=== PATIENT | female | born 1960 | race American Indian/Alaskan Native ===

== ENCOUNTER 2016-08-22 17:33 | Emergency (ER) | payer MEDICARE ==
[2016-08-22] MEDS ORDERED: NACL 0.9% 1000 ML 1,000 ML IV ONE ×2 (18:03→20:48)
[2016-08-22 19:21] LABS: Basophils % (Auto) 0.5 % (0.0-1.8); Eosinophils % (Auto) 0.1 % (0.0-4.3); Hematocrit 41.7 % (30.3-42.9); Hemoglobin 13.8 gm/dl (10.1-14.3); Mean Corpuscular HGB Conc 33 % (30-34); Mean Corpuscular Hemoglobin 26 pg (28-32); Mean Corpuscular Volume 79 fl (79-97); Platelet Count 221 K/mm3 (140-440); Red Blood Count 5.26 M/mm3 (3.65-5.03); Red Cell Distribution Width 15.2 % (13.2-15.2); White Blood Count 3.8 K/mm3 (4.5-11.0)
[2016-08-22 19:25] LABS: Alanine Aminotransferase 20 units/L (7-56); Albumin/Globulin Ratio 0.9 %; Alkaline Phosphatase 72 units/L (35-129); Anion Gap 19 mmol/L; Bilirubin,Total 0.5 mg/dL (0.1-1.2); Blood Urea Nitrogen 12 mg/dL (7-17); Calcium 9.3 mg/dL (8.4-10.2); Carbon Dioxide 26 mmol/L (22-30); Chloride 90.8 mmol/L (98-107); Glucose 93 mg/dL (65-100); Lipase 34 units/L (13-60); Sodium 133 mmol/L (137-145); Total Protein 8.4 g/dL (6.3-8.2)
[2016-08-22 19:30] LABS: Potassium 2.9 mmol/L (3.6-5.0)
[2016-08-22 19:58] LABS: INR 0.96 (0.87-1.13)
[2016-08-22 19:59] LABS: Partial Thromboplastin Time 29.3 Sec. (24.2-36.6)
[2016-08-22] MEDS ORDERED: PEPCID IV ONE (20:46)
[2016-08-22] MEDS ORDERED: MORPHINE IV ONE (20:46)
[2016-08-22] MEDS ORDERED: ZOFRAN IV ONE (20:46)
[2016-08-22] MEDS ORDERED: K-DUR PO ONE (20:48)
[2016-08-22] MEDS ORDERED: NACL ONE (20:50)
[2016-08-22 22:56] VITALS: BP 104/64
--- NOTE | 2016-08-22 22:57 | Cat Scan Report ---
FINAL REPORT EXAM: CT ABDOMEN PELVIS W CON HISTORY: epigastic, ruq pain vomiting blood, TECHNIQUE: CT images are acquired through the Abdomen and Pelvis following intravenous administration of contrast. Transaxial, coronal and sagittal reformations are provided. PRIORS: None FINDINGS: Partially visualized intrathoracic contents are unremarkable. Cholecystectomy. The liver, pancreas, spleen, and adrenal glands are unremarkable. Kidneys show no worrisome lesions, hydronephrosis, or calculi. Urinary bladder is without intraluminal stone. Small and large bowel are normal in caliber. Fluid throughout much of the colon. No pericolonic stranding. Scattered diverticula. Appendix is normal. No free air, free fluid, or lymphadenopathy identified. Aorta is normal in course and caliber. Opacified mesenteric arteries. Patient status post hysterectomy. Multiple pelvic phleboliths. Superficial soft tissues are unremarkable. No acute or aggressive appearing skeletal findings. IMPRESSION: Fluid throughout much of the colon is likely infectious. Correlation for diarrheal disease is requested. No other potentially acute intra-abdominal process identified. Consider gastroenterology consultation given history.
--- NOTE | 2016-08-22 23:18 | Emergency Department Report ---
ED Abdominal Pain HPI - General Chief Complaint: GI Bleed Stated Complaint: VOMITTING BLOOD/SOB/NO BOWEL MVMT/PASSED OUT Time Seen by Provider: 08/22/16 20:37 Source: patient Mode of arrival: Ambulatory Limitations: No Limitations - History of Present Illness Initial Comments: 56-year-old female with a past medical history of GERD, high cholesterol, hypertension, previous cholecystectomy and hysterectomy presents to the hospital complaints of abdominal pain, nausea, and vomiting. Patient complains of intermittent sharp epigastric pain rated 8/10 in intensity 1 week. Resume palpation. No leaving factors. Patient had repeated episodes of vomiting which then became blood-streaked. Patient has not had a bowel movement in 4 days and took [place] oil laxity today. No reports of fever, dysuria, or alcohol use. A family member's daughter witnessed the patient passed out. When the adult family member came to the room patient was on the bed and responsive. Mild shortness of breath reported without chest pain. Severity scale (0 -10): 7 - Related Data Home Medications Medication Instructions Recorded Confirmed Last Taken Aspirin [Aspirin BABY CHEW TAB] 81 mg PO QDAY 05/08/14 08/22/16 08/22/16 Bimatoprost [Lumigan 0.01%] 1 drop OP QPM 08/22/16 08/22/16 08/21/16 Calcium Polycarbophil [Fiber-Caps] 1 tab PO 08/22/16 08/22/16 Erythromycin [Erythromycin Ophth 1 gm OU QID 08/22/16 08/22/16 08/22/16 Oint] Latanoprost 0.005% 1 drop HS 08/22/16 08/22/16 08/21/16 Lisinopril/Hydrochlorothiazide 1 tab PO DAILY 08/22/16 08/22/16 08/22/16 [Zestoretic 20-25 mg] Loratadine [Allergy Relief] 1 tab PO PRN 08/22/16 08/22/16 Lovastatin [Altoprev] 40 mg PO QPM 08/22/16 08/22/16 08/22/16 Omeprazole 20 mg PO 08/22/16 08/22/16 Previous Rx's Medication Instructions Recorded Last Taken Type Omeprazole Magnesium [PriLOSEC Otc] 20 mg PO QDAY #30 tablet. 08/22/16 Unknown Rx Ondansetron [Zofran Odt] 4 mg PO Q8HR PRN #20 tab.rapdis 08/22/16 Unknown Rx Potassium Chloride [K-Dur] 20 meq PO BID #6 tab 08/22/16 Unknown Rx Allergies Allergy/AdvReac Type Severity Reaction Status Date / Time No Known Allergies Allergy Verified 05/03/14 09:36 ED Review of Systems ROS: Stated complaint: VOMITTING BLOOD/SOB/NO BOWEL MVMT/PASSED OUT Other details as noted in HPI Comment: All other systems reviewed and negative Other: Constitutional: No fevers chills Eyes: No eye pain visual changes ENT: No ear pain or throat pain Neck: Denies pain Respiratory: Denies cough wheezing Cardiovascular: Denies chest pain, palpitations GI: As per HPI : Denies dysuria Musculoskeletal: Denies back pain Skin: Denies rash, lesions, erythema Neurologic: Denies headache, numbness, weakness Psychiatric: Denies suicidal ideation, hallucinations ED Past Medical Hx - Past Medical History Previous Medical History?: Yes Hx Hypertension: Yes (high cholesterol) Hx GERD: Yes Hx Liver Disease: No Hx Renal Disease: No Hx Seizures: No Hx Asthma: No Hx COPD: No Hx Tuberculosis: No Hx HIV: No Additional medical history: glaucoma, sinusitis - Surgical History Past Surgical History?: No Hx Cholecystectomy: Yes Additional Surgical History: Hysterectomy - Social History Smoking Status: Never Smoker Substance Use Type: Prescribed - Medications Home Medications: Home Medications Medication Instructions Recorded Confirmed Last Taken Type Aspirin [Aspirin BABY CHEW TAB] 81 mg PO QDAY 05/08/14 08/22/16 08/22/16 History Bimatoprost [Lumigan 0.01%] 1 drop OP QPM 08/22/16 08/22/16 08/21/16 History Calcium Polycarbophil [Fiber-Caps] 1 tab PO 08/22/16 08/22/16 History Erythromycin [Erythromycin Ophth 1 gm OU QID 08/22/16 08/22/16 08/22/16 History Oint] Latanoprost 0.005% 1 drop HS 08/22/16 08/22/16 08/21/16 History Lisinopril/Hydrochlorothiazide 1 tab PO DAILY 08/22/16 08/22/16 08/22/16 History [Zestoretic 20-25 mg] Loratadine [Allergy Relief] 1 tab PO PRN 08/22/16 08/22/16 History Lovastatin [Altoprev] 40 mg PO QPM 08/22/16 08/22/16 08/22/16 History Omeprazole 20 mg PO 08/22/16 08/22/16 History Omeprazole Magnesium [PriLOSEC Otc] 20 mg PO QDAY #30 tablet. 08/22/16 Unknown Rx Ondansetron [Zofran Odt] 4 mg PO Q8HR PRN #20 tab.[place]gard 08/22/16 Unknown Rx Potassium Chloride [K-Dur] 20 meq PO BID #6 tab 08/22/16 Unknown Rx ED Physical Exam - General Limitations: Language Barrier - Other Other exam information: General: No limitations, patient is alert in no acute distress Head exam: Atraumatic, normocephalic Eyes exam: Normal appearance ENT: Moist mucous membrane, normal oropharynx Neck exam: Normal inspection, full range of motion Respiratory exam: Clear to auscultation bilateral, no wheezes, rales, crackles Cardiovascular: Normal rate and rhythm, normal heart sounds Abdomen: Soft, nondistended, epigastric tenderness, with normal bowel sounds, no rebound, or guarding Rectal: Guaiac-negative brown stool Extremity: Full range of motion normal inspection no deformity Back: Normal Inspection, full range of motion, no tenderness Neurologic: Alert, oriented x3, cranial nerves intact, no motor or sensory deficit Psychiatric: normal affect, normal mood Skin: Warm, dry, intact ED Course Vital Signs 08/22/16 08/22/16 17:47 22:56 Temperature 98.5 F Pulse Rate 95 H Respiratory 18 16 Rate Blood Pressure 155/92 Blood Pressure 104/64 [Left] O2 Sat by Pulse 100 97 Oximetry ED Medical Decision Making - Lab Data Result diagrams: 08/22/16 18:44 08/22/16 18:44 Lab Results 08/22/16 08/22/16 08/22/16 Range/Units 18:44 18:44 18:44 WBC 3.8 L (4.5-11.0) K/mm3 RBC 5.26 H (3.65-5.03) M/mm3 Hgb 13.8 (10.1-14.3) gm/dl Hct 41.7 (30.3-42.9) % MCV 79 (79-97) fl MCH 26 L (28-32) pg MCHC 33 (30-34) % RDW 15.2 (13.2-15.2) % Plt Count 221 (140-440) K/mm3 Lymph % (Auto) 53.3 H (13.4-35.0) % [place] % (Auto) 7.6 H (0.0-7.3) % Eos % (Auto) 0.1 (0.0-4.3) % Baso % (Auto) 0.5 (0.0-1.8) % Lymph # 2.0 (1.2-5.4) K/mm3 [place] # 0.3 (0.0-0.8) K/mm3 Eos # 0.0 (0.0-0.4) K/mm3 Baso # 0.0 (0.0-0.1) K/mm3 Seg Neutrophils % 38.5 L (40.0-70.0) % Seg Neutrophils # 1.5 L (1.8-7.7) K/mm3 PT 12.7 (12.2-14.9) Sec. INR 0.96 (0.87-1.13) APTT 29.3 (24.2-36.6) Sec. Sodium 133 L (137-145) mmol/L Potassium 2.9 L* (3.6-5.0) mmol/L Chloride 90.8 L (98-107) mmol/L Carbon Dioxide 26 (22-30) mmol/L Anion Gap 19 mmol/L BUN 12 (7-17) mg/dL Creatinine 1.0 (0.7-1.2) mg/dL Estimated GFR > 60 ml/min BUN/Creatinine Ratio 12.00 % Glucose 93 (65-100) mg/dL Calcium 9.3 (8.4-10.2) mg/dL Magnesium (1.7-2.3) mg/dL Total Bilirubin 0.5 (0.1-1.2) mg/dL AST 25 (5-40) units/L ALT 20 (7-56) units/L Alkaline Phosphatase 72 (35-129) units/L Total Protein 8.4 H (6.3-8.2) g/dL Albumin 4.0 (3.9-5) g/dL Albumin/Globulin Ratio 0.9 % Lipase 34 (13-60) units/L Blood Type Antibody Screen 08/22/16 08/22/16 Range/Units 18:48 20:38 WBC (4.5-11.0) K/mm3 RBC (3.65-5.03) M/mm3 Hgb (10.1-14.3) gm/dl Hct (30.3-42.9) % MCV (79-97) fl MCH (28-32) pg MCHC (30-34) % RDW (13.2-15.2) % Plt Count (140-440) K/mm3 Lymph % (Auto) (13.4-35.0) % [place] % (Auto) (0.0-7.3) % Eos % (Auto) (0.0-4.3) % Baso % (Auto) (0.0-1.8) % Lymph # (1.2-5.4) K/mm3 [place] # (0.0-0.8) K/mm3 Eos # (0.0-0.4) K/mm3 Baso # (0.0-0.1) K/mm3 Seg Neutrophils % (40.0-70.0) % Seg Neutrophils # (1.8-7.7) K/mm3 PT (12.2-14.9) Sec. INR (0.87-1.13) APTT (24.2-36.6) Sec. Sodium (137-145) mmol/L Potassium (3.6-5.0) mmol/L Chloride (98-107) mmol/L Carbon Dioxide (22-30) mmol/L Anion Gap mmol/L BUN (7-17) mg/dL Creatinine (0.7-1.2) mg/dL Estimated GFR ml/min BUN/Creatinine Ratio % Glucose (65-100) mg/dL Calcium (8.4-10.2) mg/dL Magnesium 2.0 (1.7-2.3) mg/dL Total Bilirubin (0.1-1.2) mg/dL AST (5-40) units/L ALT (7-56) units/L Alkaline Phosphatase (35-129) units/L Total Protein (6.3-8.2) g/dL Albumin (3.9-5) g/dL Albumin/Globulin Ratio % Lipase (13-60) units/L Blood Type O POSITIVE Antibody Screen Negative - EKG Data -: EKG Interpreted by Me (nsr rate 88, lad, pac) - Radiology Data Radiology results: report reviewed (CT abdomen and pelvis IV contrast: Fluid throughout much of the colon is likely infectious. Correlation full diarrheal illnesses requested.) - Medical Decision Making Patient treated morphine, Zofran, by mouth potassium. Patient feels better and tolerating by mouth. I suspect and syncope episode was related to dehydration. Patient is exhibiting no symptoms of shortness of breath, chest pain, or hypoxia in the ED - Differential Diagnosis gastroenteritis, pancreatitis, hepatitis, gastritis, obstruction Critical Care Time: No Critical care attestation.: If time is entered above; I have spent that time in minutes in the direct care of this critically ill patient, excluding procedure time. ED Disposition Clinical Impression: Gastritis, Vomiting, Hypokalemia Disposition: DISCHARGED TO HOME OR SELFCARE Is pt being admited?: No Does the pt Need Aspirin: No Condition: Stable Instructions: Gastritis (ED), Acute Nausea and Vomiting (ED) Additional Instructions: Take medications as prescribed. Return if symptoms worsen. Follow-up with your doctor for further evaluation. Prescriptions: Omeprazole Magnesium [PriLOSEC Otc] 20 mg PO QDAY #30 tablet. Ondansetron [Zofran Odt] 4 mg PO Q8HR PRN #20 tab.rapdis PRN Reason: Nausea And Vomiting Potassium Chloride [K-Dur] 20 meq PO BID #6 tab Referrals: GIRMA ARZATE MD [Primary Care Provider] - 3-5 Days Forms: Accompanied Note Time of Disposition: 23:29
== END 2016-08-23 00:51 | disposition home or self-care (01) ==
LOC: ED 17:33
DX: K29.70 Gastritis, unspecified, without bleeding (principal); E87.6 Hypokalemia; R11.2 Nausea with vomiting, unspecified; I10 Essential (primary) hypertension; K21.9 Gastro-esophageal reflux disease without esophagitis; Z90.710 Acquired absence of both cervix and uterus; Z79.82 Long term (current) use of aspirin
CPT/HCPCS: 36415; 74177; 80053; 82271; 83690; 83735; 85025; 85610; 85730; 86850; 86900; 86901; 93005; 93010; 96361; 96374; 96375; 99285; J2270; J2405; J7030; Q9967